=== PATIENT | male | born 1980 | race African-American/Black ===

== ENCOUNTER 2021-07-12 14:49 | Outpatient (CLI) | payer SELFPAY ==
[~2021-07-12] VITALS: Ht 177.8 cm; Wt 93.0 kg
[2021-07-12 15:00] VITALS: BP 128/92
[2021-07-12 15:41] LABS: GLUCOMETER DEV NAME(LOC) POC.BV
[2021-07-12 18:17] VITALS: BP 128/92
[2021-07-12] MEDS ORDERED: QUEtiapine FUMARATE 25 MG TABLET PO SCH (21:00)
[2021-07-13] MEDS ORDERED: ESCITALOPRAM OXALATE 10 MG TABLET PO SCH (09:00)
== END 2021-07-12 17:05 | disposition home or self-care (01) ==
LOC: CSU 14:49
PROVIDERS: ATTEND Psychiatry & Neurology Psychiatry
DX: F25.1 Schizoaffective disorder, depressive type (principal); Z20.822 Contact with and (suspected) exposure to COVID-19
CPT/HCPCS: 90792